=== PATIENT | male | born 1990 | race African-American/Black ===

== ENCOUNTER 2020-06-23 01:16 | Emergency (ER) | payer MEDICAID, OTHER ==
[~2020-06-23] VITALS: Ht 182.9 cm; Wt 64.0 kg
[2020-06-23 01:40] VITALS: BP 116/72
== END 2020-06-23 02:45 | disposition home or self-care (01) ==
LOC: ER 01:16
DX: Z00.00 Encounter for general adult medical examination without abnormal findings (principal)
CPT/HCPCS: 99283